=== PATIENT | male | born 1935 ===

== ENCOUNTER 2017-11-08 08:23 | Outpatient (CLI) | payer OTHER ==
[~2017-11-08 08:23] MED LIST: AMOX1TAB5 PO
== END 2017-11-08 08:36 | disposition home or self-care (01) ==
LOC: TOM 08:23
DX: C18.0 Malignant neoplasm of cecum (principal); C78.7 Secondary malignant neoplasm of liver and intrahepatic bile duct; E03.8 Other specified hypothyroidism; E78.4 Other hyperlipidemia; N40.1 Benign prostatic hyperplasia with lower urinary tract symptoms; Z92.21 Personal history of antineoplastic chemotherapy; Z51.11 Encounter for antineoplastic chemotherapy; R97.0 Elevated carcinoembryonic antigen [CEA]
CPT/HCPCS: 71260; 74177; Q9965

== ENCOUNTER 2019-06-16 08:10 | Outpatient (CLI) | payer OTHER | END 2019-06-16 09:00 | disposition home or self-care (01) | LOC: NUCLEAR 08:10 | DX: C18.0 Malignant neoplasm of cecum (principal); C78.7 Secondary malignant neoplasm of liver and intrahepatic bile duct; E03.8 Other specified hypothyroidism; D46.9 Myelodysplastic syndrome, unspecified; E78.49 Other hyperlipidemia; N40.1 Benign prostatic hyperplasia with lower urinary tract symptoms; Z92.21 Personal history of antineoplastic chemotherapy; Z51.11 Encounter for antineoplastic chemotherapy; R97.0 Elevated carcinoembryonic antigen [CEA] | CPT/HCPCS: 78816; A9552 ==